=== PATIENT | female | born 1995 | race Caucasian/White ===

== ENCOUNTER 2021-01-03 09:24 | Outpatient (CLI) | payer BC ==
[2021-01-03 10:06] LABS: CLARITY,URINE CLEAR (Clear); COLOR,URINE STRAW (Yellow); GLUCOSE, URINE NEGATIVE (Neg); KETONES,URINE NEGATIVE (Neg); LEUKOCYTE ESTERASE ,URINE NEGATIVE (Neg); NITRITES, URINE NEGATIVE (Neg); OCCULT BLOOD,URINE NEGATIVE (Neg); PROTEIN,URINE NEGATIVE (Neg); UROBILINOGEN,URINE 0.2 E.U/dL (0.2-1.0)
[2021-01-03 10:12] LABS: BASOPHILS % (AUTO) 0.5 % (0-1); EOSINOPHILS # (AUTO) 0.1 X10'3 (0-0.9); HEMATOCRIT 42.4 % (35.0-45.0); HEMOGLOBIN 14.1 g/dl (12.0-16.0); LYMPHOCYTES # (AUTO) 1.8 X10'3 (1.1-4.8); LYMPHOCYTES % (AUTO) 22.8 % (21-51); MEAN CORPUSCULAR HEMOGLOBIN 30.7 PG (27.0-31.0); MEAN CORPUSCULAR HGB CONC 33.2 g/dL (33.0-36.5); MEAN CORPUSCULAR VOLUME 92.5 FL (78-98); MEAN PLATELET VOLUME 8.3 FL (7.4-10.4); MONOCYTES # (AUTO) 0.6 X10'3 (0-0.9); NEUTROPHILS # (AUTO) 5.3 X10'3 (1.8-7.7); NEUTROPHILS % (AUTO) 67.7 % (42-75); PLATELET COUNT 329 X10'3 (140-440); RED BLOOD COUNT 4.59 X10'6 (4.20-5.60); RED CELL DISTRIBUTION WIDTH 13.3 % (11.5-14.5); WHITE BLOOD COUNT 7.8 X10'3 (4.5-11.0)
[2021-01-03 10:31] LABS: ALANINE AMINOTRANSFERASE 20 U/L (12-78); ALBUMIN 4.1 G/DL (3.4-5.0); ALKALINE PHOSPHATASE 68 IU/L (46-116); ANION GAP 8 (8-16); ASPARTATE AMINO TRANSFERASE 15 U/L (10-37); BLOOD UREA NITROGEN 10 MG/DL (7-18); BUN/CREATININE RATIO 13.7 (6.6-38.0); CALCIUM 8.7 MG/DL (8.5-10.1); CHLORIDE 106 MMOL/L (99-107); CHOL/HDL RATIO 2.7 (0.00-4.99); CHOLESTEROL 137 MG/DL (0-200); CREATININE 0.73 MG/DL (0.40-0.90); GLUCOSE 83 MG/DL (70-104); HDL CHOLESTEROL 51 MG/DL (35-60); LDL CHOLESTEROL 74 MG/DL (50-100); SODIUM 142 MMOL/L (135-145); TOTAL CARBON DIOXIDE 28.3 MMOL/L (24-32); TOTAL PROTEIN 8.2 G/DL (6.4-8.2); TRIGLYCERIDES 80 MG/DL (20-135); eGFR > 90 ML/MIN
[2021-01-03 10:33] LABS: BILIRUBIN,TOTAL 0.2 MG/DL (0.1-1.0); HEMOGLOBIN A1C 5.5 % (4.5-6.2)
[2021-01-03 10:34] LABS: UA COLLECTION TYPE CLN CATCH MIDSTREAM
[2021-01-04 15:49] LABS: FSH, SERUM 4.3 mIU/mL (.); LUTEINIZING HORMONE 6.3 mIU/mL (.)
== END 2021-01-03 23:59 | disposition home or self-care (01) ==
LOC: LAB 09:24
PROVIDERS: ATTEND Nurse Practitioner Family
DX: Z00.01 Encounter for general adult medical examination with abnormal findings (principal)
CPT/HCPCS: 36415; 80053; 80061; 81003; 83001; 83002; 83036; 84402; 84403; 84439; 84443; 85025

== ENCOUNTER 2021-01-05 09:12 | Outpatient (CLI) | payer BC | END 2021-01-05 23:59 | disposition home or self-care (01) | LOC: RAD 09:12 | PROVIDERS: ATTEND Nurse Practitioner Family | DX: N92.6 Irregular menstruation, unspecified (principal); K80.20 Calculus of gallbladder without cholecystitis without obstruction; Z00.01 Encounter for general adult medical examination with abnormal findings | CPT/HCPCS: 76700; 76830; 76856; 93976 ==

== ENCOUNTER 2021-04-13 06:05 | Outpatient (CLI) | payer BC ==
[2021-04-15 17:15] LABS: ACTH, PLASMA 29.5 pg/mL (7.2-63.3)
[2021-04-16 00:02] LABS: PROGESTERONE 0.1 ng/mL (.); THYROID PEROXIDASE AB <8 IU/mL (0-34)
[2021-04-21] MEDS ORDERED: ACET-1015 PO (13:58)
[2021-04-21] MEDS ORDERED: IBUP-24 PO (13:58)
[2021-04-21] MEDS ORDERED: PSEUDOEPHEDRINE (13:58)
== END 2021-04-13 23:59 | disposition home or self-care (01) ==
LOC: LAB 06:05
DX: E28.8 Other ovarian dysfunction (principal); L68.0 Hirsutism; E04.1 Nontoxic single thyroid nodule
CPT/HCPCS: 36415; 82024; 82627; 84144; 84146; 84443; 86376

== ENCOUNTER 2021-04-28 10:33 | Day surgery (SDC) | payer BC ==
[2021-04-21 14:15] LABS: BASOPHILS # (AUTO) 0.1 X10'3 (0-0.2); BASOPHILS % (AUTO) 0.7 % (0-1); EOSINOPHILS # (AUTO) 0.1 X10'3 (0-0.9); EOSINOPHILS % (AUTO) 1.7 % (0-6); LYMPHOCYTES # (AUTO) 2.5 X10'3 (1.1-4.8); LYMPHOCYTES % (AUTO) 31.7 % (21-51); MEAN CORPUSCULAR HEMOGLOBIN 30.2 PG (27.0-31.0); MEAN CORPUSCULAR HGB CONC 33.2 g/dL (33.0-36.5); MEAN CORPUSCULAR VOLUME 91.2 FL (78-98); MEAN PLATELET VOLUME 8.4 FL (7.4-10.4); MONOCYTES # (AUTO) 0.6 X10'3 (0-0.9); MONOCYTES % (AUTO) 7.8 % (2-12); NEUTROPHILS # (AUTO) 4.5 X10'3 (1.8-7.7); NEUTROPHILS % (AUTO) 58.1 % (42-75); PRE OP HEMATOCRIT 39.6 % (35.0-45.0); PRE OP HEMOGLOBIN 13.1 g/dL (12.0-16.0); PRE OP PLATELET COUNT 235 X10'3 (140-440); RED BLOOD COUNT 4.34 X10'6 (4.20-5.60); RED CELL DISTRIBUTION WIDTH 13.4 % (11.5-14.5)
[2021-04-21 14:31] LABS: ALBUMIN 3.5 G/DL (3.4-5.0); ALBUMIN/GLOBULIN RATIO 0.9 (1.1-1.5); ALKALINE PHOSPHATASE 64 IU/L (46-116); BLOOD UREA NITROGEN 9 MG/DL (7-18); CALCIUM 8.6 MG/DL (8.5-10.1); CHLORIDE 108 MMOL/L (99-107); CREATININE 0.75 MG/DL (0.40-0.90); PRE OP ALT 20 U/L (30-65); PRE OP ANION GAP 8 (8-16); PRE OP AST 15 U/L (10-37); PRE OP BILIRUB, TOTAL 0.2 MG/DL (0.0-1.0); PRE OP GLUCOSE 93 MG/DL (70-104); PRE OP POTASSIUM 3.8 MMOL/L (3.4-5.1); PRE OP SODIUM 143 MMOL/L (135-145); TOTAL CARBON DIOXIDE 26.7 MMOL/L (24-32); TOTAL PROTEIN 7.3 G/DL (6.4-8.2); eGFR > 90 ML/MIN
[2021-04-21 14:37] LABS: HCG SERUM QL NEGATIVE
[~2021-04-28] VITALS: Ht 167.6 cm; Wt 77.2 kg
[2021-04-28] VITALS (7 sets, daily range): BP systolic 103–116; BP diastolic 69–86
[~2021-04-28 10:33] MED LIST: ACET-1015 PO; BUPIVAcaine/PF 2.5mg/ml (0.25%) 10ml vial ONE; IBUP-24 PO; INDOCYANINE GREEN 25 MG/10 ML VIAL IV ONE; LIDOcaine 1% 30ml preserv. free vial ONE; PSEUDOEPHEDRINE; clindamycin-Cleocin 900mg/D5W 50 ML IV ONE; famotidine 20mg tablet PO ONE; ringers solution, lacted 1,000 ML IV SCH
[2021-04-28] MEDS ORDERED: BUPIVAcaine/PF 2.5 mg/ml (0.25%) 30ml vial ONE (10:55)
[2021-04-28] MEDS ORDERED: sevoflurane 250ml liquid IH ONE (12:12)
[2021-04-28] MEDS ORDERED: fentaNYL/PF 50MCG/1 ML 2ML syringe ONE (12:16)
[2021-04-28] MEDS ORDERED: midazolam 1 mg/ML 2ml injection ONE (12:16)
[2021-04-28] MEDS ORDERED: rocuronium 10mg/ml inj IV ONE (12:30)
[2021-04-28] MEDS ORDERED: dexamethasone sod phosphate 4mg/ml inj. ONE (12:30)
[2021-04-28] MEDS ORDERED: propofol inj 20 ML IV ONE (12:30)
[2021-04-28] MEDS ORDERED: ondansetron/PF 4mg/2ml inj ONE (12:59)
[2021-04-28] MEDS ORDERED: meperidine/PF 25mg/ml syringe IV PRN ×3 (13:00)
[2021-04-28] MEDS ORDERED: ringers solution, lacted 1,000 ML IV SCH (13:00)
[2021-04-28] MEDS ORDERED: proCHLORperazine 10 MG/2 ml inj IV PRN (13:00)
[2021-04-28] MEDS ORDERED: morphine 4 MG/ML inj SYRINge IV PRN (13:00)
[2021-04-28] MEDS ORDERED: ondansetron/PF 4mg/2ml inj IV PRN (13:00)
[2021-04-28] MEDS ORDERED: morphine 2 MG/ML inj. syringe IV PRN (13:00)
[2021-04-28] MEDS ORDERED: sugammadex 200mg/2ml injection IV ONE (13:14)
[2021-04-28] MEDS ORDERED: acetaminophen 1,000mg/100ml IV 100 ML IV ONE (13:20)
--- NOTE | 2021-04-28 13:33 | NUR ---
Received from OR via [facility] , accompanied by Anesthesiologist LILLIANA and report given by Anesthesiolgist. PATIENT WITH 20G PIV IN LEFT UE RUNNING LR AT 100.4 LAP BANDAIDS PRESENT TO ABDOMEN THAT ARE CDI. Addendum: 04/28/21 at 1344 by Ladarius Arellano RN, RN Amended: Links added.
[2021-04-28] MEDS ORDERED: oxyCODONE/APAP 5-325mg tablet PO PRN ×2 (13:55)
--- NOTE | 2021-04-28 14:33 | NUR ---
ALL DISCHARGE CRITERIA HAS BEEN MET. VSS, PAIN AT A TOLERABLE LEVEL, VOIDING AND ABLE TO SAFELY AMBULATE AND TRANSFER SELF. IV TAKEN OUT WITHOUT ANY COMPLICATIONS. ALL DISCHARGE INSTRUCTIONS COVERED WITH PATIENT AND ALL QUESTIONS ANSWERED. PATIENT TAKEN OUT VIA WHEELCHAIR TO PERSONAL VEHICLE WHERE FAMILY/FRIEND DROVE PATIENT HOME. Addendum: 04/28/21 at 1443 by Ladarius Arellano RN, RN Amended: Links added.
== END 2021-04-28 14:33 | disposition home or self-care (01) ==
LOC: PAS 10:33
PROVIDERS: ATTEND Surgery
DX: K80.10 Calculus of gallbladder with chronic cholecystitis without obstruction (principal); F41.9 Anxiety disorder, unspecified; G43.909 Migraine, unspecified, not intractable, without status migrainosus; Z20.822 Contact with and (suspected) exposure to COVID-19; Z79.899 Other long term (current) drug therapy; Z88.1 Allergy status to other antibiotic agents; Z98.818 Other dental procedure status; Z83.3 Family history of diabetes mellitus; Z80.3 Family history of malignant neoplasm of breast; Z80.8 Family history of malignant neoplasm of other organs or systems; Z82.49 Family history of ischemic heart disease and other diseases of the circulatory system
CPT/HCPCS: 36415; 47563; 80053; 82948; 84703; 85025; C9399; J0131; J1100; J2001; J2250; J2405; J2704; J3010; J3490; J7120; S2900; U0003; U0005; Z7506; Z7508; Z7512; A4215; A4618; A7000